=== PATIENT | male | born 1980 | race Caucasian/White ===

== ENCOUNTER 2018-12-10 10:51 | Inpatient (IN) | payer OTHER ==
[2018-12-10 11:13] VITALS: BMI 25.0
--- NOTE | 2018-12-10 11:45 | HP ---
"CIWA Score Nausea/Vomitin-No Nausea/No Vomiting Muscle Tremors: 3 Anxiety: 4-Mod. Anxious/Guarded Agitation: 4-Moderately Restless Paroxysmal Sweats: 3 (Increased facial moisture) Orientation: 0-Oriented Tacttile Disturbances: 0-None Auditory Disturbances: 0-None Visual Disturbances: 0-None Headache: 0-None Present CIWA-Ar Total Score: 14 - Admission Criteria OASAS Guidelines: Admission for Medically Managed Detox: Requires at least one of the followin. CIWA greater than 12 2. Seizures within the past 24 hours 3. Delirium tremens within the past 24 hours 4. Hallucinations within the past 24 hours 5. Acute intervention needed for co occurring medical disorder 6. Acute intervention needed for co occurring psychiatric disorder 7. Severe withdrawal that cannot be handled at a lower level of care (continued vomiting, continued diarrhea, abnormal vital signs) requiring intravenous medication and/or fluids 8. Patient presents the following: CIWA greater than 12 (PRATIBHA 0.224) Admission Criteria Met: Admission criteria met Admission ROS S - [facility] Chief Complaint: Here w/ alcohol withdrawal Allergies/Adverse Reactions: Allergies Allergy/AdvReac Type Severity Reaction Status Date / Time No Known Allergies Allergy Verified 12/10/18 11:06 History of Present Illness: Here for alcohol detox. Patient brought to [facility] for detox after started drinking after discharge from ED Dept @ [facility] (ED admit: 12/09/18 w/head injury, facial contusion, and alcohol intoxication after a fall down stairs. Neg CT scan.) Patient ambivalent about staying. Alcohol use began at age 15. Patient states willing to consider naltrexone upon discharge. No hx opioid use. Nicotine use began at age 14. Denies seizures or blackouts. PMHx Intermittent back pain w/ sciatica, (R) foot pain MHHx: Denies depression. Denies thoughts of harming self or others. Discussed Search Terms: [place], 1980 Search Date: 12/10/2018 11:38:23 AM The Drug Utilization Report below displays all of the controlled substance prescriptions, if any, that your patient has filled in the last twelve months. The information displayed on this report is compiled from pharmacy submissions to the Department, and accurately reflects the information as submitted by the pharmacies. This report was requested by: Hilary Moody | Reference #: [id number] There are no results for the search terms that you entered. Exam Limitations: No Limitations - Ebola screening Have you traveled outside of the country in the last 21 days: No (N) Have you had contact with anyone from an Ebola affected area: No Have you been sick,other than usual withdrawal symptoms: No (No measles exposure ) Do you have a fever: No - Review of Systems Constitutional: Diaphoresis EENT: reports: Other (Black and blue (R) eye r/t recent fall) Respiratory: reports: No Symptoms reported Cardiac: reports: No Symptoms Reported GI: reports: Nausea : reports: No Symptoms Reported Musculoskeletal: reports: Back Pain (Intermiitent back pain w/ sciatica. Denies pain at this time.), Other (Tingling painful sensation bottom of (R) foot x 1 week) Integumentary: reports: Bruising ((R) eye and ear) Neuro: reports: No Symptoms reported Endocrine: reports: No Symptoms Reported Hematology: reports: No Symptoms Reported Psychiatric: reports: Judgement Intact, Orientated x3, Agitated, Anxious Patient History - PPD History Previous Implant?: No (States BCG as a child ) PPD to be Administered?: Yes - Smoking Cessation Smoking history: Current every day smoker Have you smoked in the past 12 months: Yes Aproximately how many cigarettes per day: 40 Hx Chewing Tobacco Use: Yes Initiated information on smoking cessation: Yes 'Breaking Loose' booklet given: 12/10/18 - Substance & Tx. History Hx Alcohol Use: Yes Hx Substance Use: Yes Substance Use Type: Alcohol Hx Substance Use Treatment: No - Substances abused Alcohol Substance route: Oral Frequency: Daily Amount used: 30 beers Age of first use: 15 Date of last use: 12/10/18 Admission Physical Exam S - Vital Signs Vital Signs: Vital Signs - 24 hr 12/10/18 10:54 Temperature 97.3 F L Pulse Rate 88 Respiratory 18 Rate Blood Pressure 141/92 - Physical General Appearance: Yes: Nourished, Moderate Distress, Alcohol on Breath, Tremorous, Irritable, Sweating (Increased facial moisture), Anxious HEENTM: Yes: EOMI, Hearing grossly Normal, Normocephalic, DANILO, Pharynx Normal, Orbits (Red scleral redness w/ injection), Other ((R) Periorbital ecchimosis w/ swelling; (L) cheek swelling) Respiratory: Yes: Lungs Clear, Normal Breath Sounds, No Respiratory Distress Neck: Yes: No masses,lesions,Nodules, Supple Breast: Yes: Breast Exam Deferred Cardiology: Yes: Regular Rhythm, Regular Rate, S1, S2 Abdominal: Yes: Normal Bowel Sounds, Non Tender, Flat, Soft Genitourinary: Yes: Within Normal Limits Back: Yes: Normal Inspection Musculoskeletal: Yes: full range of Motion, Gait Steady Extremities: Yes: Normal Capillary Refill, Normal Range of Motion, Tremors Neurological: Yes: bi analyst II-XII NML intact, Fully Oriented, Alert, Motor Strength 5/5 Integumentary: Yes: Normal Color, Warm, Diaphoresis (Increased facial moisture) Lymphatic: Yes: Within Normal Limits - Diagnostic (1) Alcohol dependence with uncomplicated withdrawal Current Visit: Yes Status: Acute (2) Nicotine dependence, uncomplicated Current Visit: Yes Status: Chronic Qualifiers: Nicotine product type: cigarettes Qualified Code(s): F17.210 - Nicotine dependence, cigarettes, uncomplicated (3) History of back pain Current Visit: No Status: Chronic (4) Plantar fasciitis Current Visit: Yes Status: Acute (5) Traumatic periorbital ecchymosis of left eye Current Visit: Yes Status: Acute Qualifiers: Encounter type: sequela Qualified Code(s): S05.12XS - Contusion of eyeball and orbital tissues, left eye, sequela Comment: Seen in [facility] ED (12/09/18) prior to admission. Dx; Facial Contusion. Neg fx. Neg CT scan Cleared for Admission [facility] - Detox or Rehab [facility] Level of Care: Medically Managed Detox Regimen/Protocol: Librium Breathalyzer - Breathalyzer Breathalyzer: 0.224 Urine Drug Screen - Test Device Lot number: [id number] Expiration date: 07/21/20 - Control Is test valid?: Yes - Results Drug screen NEGATIVE: Yes Inpatient Rehab Admission - Rehab Decision to Admit Inpatient rehab admission?: No"
[2018-12-10] MEDS ORDERED: IBUPROFEN 400 MG TABLET (FP) PO PRN (12:36)
[2018-12-10] MEDS ORDERED: MAG HYDROX/AL HYDROX/SIMETH 30 ML UNIT-DOSE CUP PO PRN (12:36)
[2018-12-10] MEDS ORDERED: chlordiazePOXIDE HCL 25 MG CAPSULE PO ONE (12:36)
[2018-12-10] MEDS ORDERED: NICOTINE POLACRILEX 4 MG GUM BUC PRN (12:36)
[2018-12-10] MEDS ORDERED: chlordiazePOXIDE HCL 25 MG CAPSULE PO PRN (12:36)
[2018-12-10] MEDS ORDERED: guaiFENesin 200 MG/10 ML 10 ML UNIT-DOSE CUPS PO PRN (12:36)
[2018-12-10] MEDS ORDERED: ACETAMINOPHEN 325 MG TABLET (FP) PO PRN ×2 (12:36)
[2018-12-10] MEDS ORDERED: MAGNESIUM CITRATE 300 ML BOTTLE PO PRN (12:36)
[2018-12-10] MEDS ORDERED: MENTHOL/PHENOL 1 EACH UD MM PRN (12:36)
[2018-12-10] MEDS ORDERED: BISMUTH SUBSALICYLATE 524 MG/30 ML UD PO PRN (12:36)
[2018-12-10] MEDS ORDERED: MAGNESIUM HYDROX 2400MG/30ML ORAL SUSPENSION 30 ML CUP PO PRN (12:36)
[2018-12-10] MEDS ORDERED: METHOCARBAMOL 500 MG TABLET PO PRN (12:36)
[2018-12-10] MEDS: NICOTINE 21 MG/24 HOURS TOPICAL PATCH TD SCH (12:47)
[2018-12-10 13:38] LABS: URINE APPEARANCE CLEAR; URINE BILIRUBIN NEGATIVE (NEGATIVE); URINE COLOR YELLOW; URINE GLUCOSE (UA) NEGATIVE (NEGATIVE); URINE KETONE NEGATIVE (NEGATIVE); URINE LEUK ESTERASE NEGATIVE (NEGATIVE); URINE NITRITE NEGATIVE (NEGATIVE); URINE PROTEIN NEGATIVE (NEGATIVE)
[2018-12-10] MEDS: chlordiazePOXIDE HCL 25 MG CAPSULE PO SCH ×2 (17:38→22:26)
[2018-12-10] MEDS: THIAMINE HCL 100 MG TABLET (FP) PO SCH (22:26)
[2018-12-10] MEDS: MELATONIN 5 MG TABLETS PO PRN (22:27)
[2018-12-11] MEDS: chlordiazePOXIDE HCL 25 MG CAPSULE PO SCH ×4 (05:54→22:06)
[2018-12-11] MEDS ORDERED: HYDROCHLOROTHIAZIDE 50 MG TABLET PO SCH (07:15)
[2018-12-11 09:59] LABS: ALBUMIN 3.6 g/dl (3.4-5.0); ALK PHOS 91 U/L (45-117); ANION GAP 9 MMOL/L (8-16); BLOOD UREA NITROGEN 6 mg/dL (7-18); CALCIUM 9.2 mg/dL (8.5-10.1); CHLORIDE 100 mmol/L (98-107); CO2 30 mmol/L (21-32); CREATININE 0.6 mg/dL (0.55-1.3); GLUCOSE,RANDOM 93 mg/dL (74-106); POTASSIUM 3.6 mmol/L (3.5-5.1); SGOT/AST 103 U/L (15-37); SGPT/ALT 100 U/L (13-61); SODIUM 139 mmol/L (136-145); TOT PROT 6.6 g/dl (6.4-8.2)
--- NOTE | 2018-12-11 10:01 | EKG ---
Test Reason : Blood Pressure : / mmHG Vent. Rate : 082 BPM Atrial Rate : 082 BPM P-R Int : 192 ms QRS Dur : 092 ms QT Int : 356 ms P-R-T Axes : 065 081 070 degrees QTc Int : 415 ms NORMAL SINUS RHYTHM NORMAL ECG NO PREVIOUS ECGS AVAILABLE Confirmed by ALBANIA MATT MD ([id number]) on 12/11/2018 10:01:17 AM Referred By: NABIL LYONS Confirmed By:ALBANIA MATT MD
[2018-12-11] MEDS: PRENATAL VITAMINS W/ FOLIC ACID TABLET (FP) PO SCH (10:06)
[2018-12-11] MEDS: NICOTINE 21 MG/24 HOURS TOPICAL PATCH TD SCH (10:06)
[2018-12-11 10:09] LABS: HEMOGLOBIN 16.2 GM/dL (11.7-16.9); MCH 33.3 pg (25.7-33.7); MCHC 34.4 g/dl (32.0-35.9); MEAN CELL VOLUME 96.8 fl (80-96); MEAN PLT VOLUME 8.8 fl (7.5-11.1); PLATELET COUNT 91 K/MM3 (134-434); RBC 4.86 M/mm3 (4.00-5.60); RDW 13.3 % (11.9-15.9); WHITE BLOOD COUNT 3.1 K/mm3 (4.0-10.0)
--- NOTE | 2018-12-11 16:53 | PN ---
[facility] CIWA - CIWA Score Nausea/Vomitin-No Nausea/No Vomiting Muscle Tremors: 3 Anxiety: 3 Agitation: 0-Normal Activity Paroxysmal Sweats: No Perspiration Orientation: 0-Oriented Tacttile Disturbances: 0-None Auditory Disturbances: 1-Very Mild Visual Disturbances: 3-Moderate Sensitivity Headache: 0-None Present CIWA-Ar Total Score: 10 S Progress Note (SOAP) Subjective: Tremors, Anxious, Fatigue. Objective: PATIENT A & O X 3. IN NO ACUTE DISTRESS. PATIENT DENIES CHEST PAIN. 12/11/18 16:50 Vital Signs Temperature 98.0 F 12/11/18 13:34 Pulse Rate 96 H 12/11/18 14:00 Respiratory Rate 20 12/11/18 14:00 Blood Pressure 141/83 12/11/18 13:34 O2 Sat by Pulse Oximetry (%) PATIENT DENIES KNOWN HISTORY OF HTN. Laboratory Tests 12/10/18 12/11/18 12/11/18 12:35 07:45 07:45 WBC 3.1 L RBC 4.86 Hgb 16.2 Hct 47.0 MCV 96.8 H MCH 33.3 MCHC 34.4 RDW 13.3 Plt Count 91 L MPV 8.8 Platelet Comment No clumping noted Sodium 139 Potassium 3.6 Chloride 100 Carbon Dioxide 30 Anion Gap 9 BUN 6 L Creatinine 0.6 Creat Clearance w eGFR 149.99 Random Glucose 93 Calcium 9.2 Total Bilirubin 1.0 AST 103 H ALT 100 H Alkaline Phosphatase 91 Total Protein 6.6 Albumin 3.6 Urine Color Yellow Urine Appearance Clear Urine pH 5.0 Ur Specific [place] 1.010 Urine Protein Negative Urine Glucose (UA) Negative Urine Ketones Negative Urine Blood Negative Urine Nitrite Negative Urine Bilirubin Negative Urine Urobilinogen 1.0 Ur Leukocyte Esterase Negative RPR Titer 12/11/18 07:45 WBC RBC Hgb Hct MCV MCH MCHC RDW Plt Count MPV Platelet Comment Sodium Potassium Chloride Carbon Dioxide Anion Gap BUN Creatinine Creat Clearance w eGFR Random Glucose Calcium Total Bilirubin AST ALT Alkaline Phosphatase Total Protein Albumin Urine Color Urine Appearance Urine pH Ur Specific [place] Urine Protein Urine Glucose (UA) Urine Ketones Urine Blood Urine Nitrite Urine Bilirubin Urine Urobilinogen Ur Leukocyte Esterase RPR Titer Nonreactive LABS NOTED. Assessment: 12/11/18 16:51 WITHDRAWAL SYMPTOMS. THROMBOCYTOPENIA. LEUKOPENIA. ELEVATED LIVER ENZYMES. Plan: CONTINUE DETOX. CONTINUE TO MONITOR BP. PATIENT ADVISED TO GENTLY AND INTERMITTENTLY APPLY ICE (COVERED BY TOWEL) TO AREA OF LEFT ORBITAL BONE FOR SWELLING AND BRUISING OF LEFT ORBIT, AND TO AVOID CLOSE CONTACT WITH EYE ITSELF. PATIENT VERBALIZED UNDERSTANDING OF RECOMMENDATION.
[2018-12-11] MEDS: THIAMINE HCL 100 MG TABLET (FP) PO SCH (22:06)
[2018-12-11] MEDS: MELATONIN 5 MG TABLETS PO PRN (22:06)
[2018-12-12] MEDS: chlordiazePOXIDE HCL 25 MG CAPSULE PO SCH ×2 (05:39→10:11)
[2018-12-12] MEDS: HYDROCHLOROTHIAZIDE 25 MG TABLET (FP) PO SCH (05:41)
[2018-12-12] MEDS: PRENATAL VITAMINS W/ FOLIC ACID TABLET (FP) PO SCH (10:11)
[2018-12-12] MEDS: NICOTINE 21 MG/24 HOURS TOPICAL PATCH TD SCH (10:11)
[2018-12-12 10:13] LABS: SGOT/AST 110 U/L (15-37); SGPT/ALT 121 U/L (13-61)
[2018-12-12] MEDS ORDERED: chlordiazePOXIDE HCL 10 MG CAPSULE PO PRN (17:00)
[2018-12-12] MEDS: chlordiazePOXIDE HCL 10 MG CAPSULE PO SCH ×2 (17:04→22:10)
--- NOTE | 2018-12-12 17:06 | PN ---
S CIWA - CIWA Score Nausea/Vomitin-No Nausea/No Vomiting Muscle Tremors: 3 Anxiety: 2 Agitation: 1-Slight > Activity Paroxysmal Sweats: No Perspiration Orientation: 0-Oriented Tacttile Disturbances: 1-Very Mild Itch/Numbness Auditory Disturbances: 0-None Visual Disturbances: 1-Very Mild Sensitivity Headache: 0-None Present CIWA-Ar Total Score: 8 BHS Progress Note (SOAP) Subjective: Tremors, Anxious (Mild). Objective: PATIENT A & O X 3, OBSERVED AMBULATING ON UNIT UNASSISTED. IN NO ACUTE DISTRESS. 12/12/18 17:02 Vital Signs Temperature 97 F L 12/12/18 13:23 Pulse Rate 87 12/12/18 13:23 Respiratory Rate 18 12/12/18 13:23 Blood Pressure 133/83 12/12/18 13:23 O2 Sat by Pulse Oximetry (%) Laboratory Tests 12/10/18 12/11/18 12/11/18 12:35 07:45 07:45 WBC 3.1 L RBC 4.86 Hgb 16.2 Hct 47.0 MCV 96.8 H MCH 33.3 MCHC 34.4 RDW 13.3 Plt Count 91 L MPV 8.8 Platelet Comment No clumping noted Sodium 139 Potassium 3.6 Chloride 100 Carbon Dioxide 30 Anion Gap 9 BUN 6 L Creatinine 0.6 Creat Clearance w eGFR 149.99 Random Glucose 93 Calcium 9.2 Total Bilirubin 1.0 AST 103 H ALT 100 H Alkaline Phosphatase 91 Total Protein 6.6 Albumin 3.6 Urine Color Yellow Urine Appearance Clear Urine pH 5.0 Ur Specific [place] 1.010 Urine Protein Negative Urine Glucose (UA) Negative Urine Ketones Negative Urine Blood Negative Urine Nitrite Negative Urine Bilirubin Negative Urine Urobilinogen 1.0 Ur Leukocyte Esterase Negative RPR Titer 12/11/18 12/12/18 07:45 07:00 WBC RBC Hgb Hct MCV MCH MCHC RDW Plt Count MPV Platelet Comment Sodium Potassium Chloride Carbon Dioxide Anion Gap BUN Creatinine Creat Clearance w eGFR Random Glucose Calcium Total Bilirubin AST 110 H ALT 121 H Alkaline Phosphatase Total Protein Albumin Urine Color Urine Appearance Urine pH Ur Specific [place] Urine Protein Urine Glucose (UA) Urine Ketones Urine Blood Urine Nitrite Urine Bilirubin Urine Urobilinogen Ur Leukocyte Esterase RPR Titer Nonreactive LABS NOTED. RESULTS OF REPEAT AST AND ALT NOTED. 12/12/18 17:06 Assessment: 12/12/18 17:03 WITHDRAWAL SYMPTOMS. LEUKOPENIA. THROMBOCYTOPENIA. ELEVATED LIVER ENZYMES. 12/12/18 17:04 Plan: CONTINUE DETOX. PATIENT REPORTS THAT HE IS TOLERATING CURRENT WITHDRAWAL / DETOX SYMPTOMS WELL. AT PATIENT'S REQUEST, CURRENT DETOX MEDICATION REGIMEN (LIBRIUM) MODIFIED SO THAT PATIENT MAY BE DISCHARGED TOMORROW, 12/13/2018. PATIENT ADVISED TO FOLLOW-UP WITH CHARGING MANIPULATOR AFTER DISCHARGE FROM DETOX UNIT FOR GENERAL MEDICAL ASSESSMENT AND FOR LOW WBC AND PLATELET LEVELS AND FOR ELEVATED AST AND ALT LEVELS NOTED WHILE ADMITTED FOR DETOX. PATIENT VERBALIZED UNDERSTANDING OF RECOMMENDATION. COPIES OF RESULTS OF ALL LABS DRAWN WHILE ADMITTED FOR DETOX WILL BE GIVEN TO PATIENT AT TIME OF DISCHARGE FROM DETOX UNIT TOMORROW.
[2018-12-12] MEDS: THIAMINE HCL 100 MG TABLET (FP) PO SCH (22:10)
[2018-12-12] MEDS: MELATONIN 5 MG TABLETS PO PRN (22:11)
[2018-12-13] MEDS: chlordiazePOXIDE HCL 10 MG CAPSULE PO SCH (05:29)
[2018-12-13] MEDS: HYDROCHLOROTHIAZIDE 25 MG TABLET (FP) PO SCH (06:24)
[2018-12-13 06:46] VITALS: BP 122/78; PULSE 119; TEMP 96
--- NOTE | 2018-12-13 12:39 | DS ---
[facility] Detox Discharge Summary Admission Date: 12/10/18 Discharge Date: 12/13/18 - History Present History: Alcohol Dependence Additional Comments: 38 years old male admitted on 12/10/18 for alcohol withdrawal stabilization completed detox regimen aftercare [facility] Pertinent Past History: bring in medication list and lab report to aftercare appointment - Physical Exam Results Vital Signs: Vital Signs Temperature 96.0 F L 12/13/18 06:45 Pulse Rate 119 H 12/13/18 06:45 Respiratory Rate 18 12/13/18 06:45 Blood Pressure 122/78 12/13/18 06:45 O2 Sat by Pulse Oximetry (%) Pertinent Admission Physical Exam Findings: alcohol withdrawal sx Laboratory Last Values WBC 3.1 K/mm3 (4.0-10.0) L 12/11/18 07:45 RBC 4.86 M/mm3 (4.00-5.60) 12/11/18 07:45 Hgb 16.2 GM/dL (11.7-16.9) 12/11/18 07:45 Hct 47.0 % (35.4-49) 12/11/18 07:45 MCV 96.8 fl (80-96) H 12/11/18 07:45 MCH 33.3 pg (25.7-33.7) 12/11/18 07:45 MCHC 34.4 g/dl (32.0-35.9) 12/11/18 07:45 RDW 13.3 % (11.9-15.9) 12/11/18 07:45 Plt Count 91 K/MM3 (134-434) L 12/11/18 07:45 MPV 8.8 fl (7.5-11.1) 12/11/18 07:45 Platelet Comment No clumping noted 12/11/18 07:45 Sodium 139 mmol/L (136-145) 12/11/18 07:45 Potassium 3.6 mmol/L (3.5-5.1) 12/11/18 07:45 Chloride 100 mmol/L (98-107) 12/11/18 07:45 Carbon Dioxide 30 mmol/L (21-32) 12/11/18 07:45 Anion Gap 9 MMOL/L (8-16) 12/11/18 07:45 BUN 6 mg/dL (7-18) L 12/11/18 07:45 Creatinine 0.6 mg/dL (0.55-1.3) 12/11/18 07:45 Creat Clearance w eGFR 149.99 (>60) 12/11/18 07:45 Random Glucose 93 mg/dL (74-106) 12/11/18 07:45 Calcium 9.2 mg/dL (8.5-10.1) 12/11/18 07:45 Total Bilirubin 1.0 mg/dL (0.2-1) 12/11/18 07:45 AST 110 U/L (15-37) H 12/12/18 07:00 ALT 121 U/L (13-61) H 12/12/18 07:00 Alkaline Phosphatase 91 U/L (45-117) 12/11/18 07:45 Total Protein 6.6 g/dl (6.4-8.2) 12/11/18 07:45 Albumin 3.6 g/dl (3.4-5.0) 12/11/18 07:45 Urine Color Yellow 12/10/18 12:35 Urine Appearance Clear 12/10/18 12:35 Urine pH 5.0 (5.0-8.0) 12/10/18 12:35 Ur Specific [place] 1.010 (1.010-1.035) 12/10/18 12:35 Urine Protein Negative (NEGATIVE) 12/10/18 12:35 Urine Glucose (UA) Negative (NEGATIVE) 12/10/18 12:35 Urine Ketones Negative (NEGATIVE) 12/10/18 12:35 Urine Blood Negative (NEGATIVE) 12/10/18 12:35 Urine Nitrite Negative (NEGATIVE) 12/10/18 12:35 Urine Bilirubin Negative (NEGATIVE) 12/10/18 12:35 Urine Urobilinogen 1.0 mg/dL (0.2-1.0) 12/10/18 12:35 Ur Leukocyte Esterase Negative (NEGATIVE) 12/10/18 12:35 RPR Titer Nonreactive (NONREACTIVE) 12/11/18 07:45 lab noted patient agrees to bring in lab report to aftercare appointment - Treatment Hospital Course: Detox Protocol Followed, Detoxed Safely, Responded well, Discharged Condition Good, Rehab Referral Accepted Patient has Accepted a Rehab Referral to: [facility] - Medication Discharge Medications: Ambulatory Orders NK [No Known Home Medication] 12/10/18 - Diagnosis (1) Alcohol dependence with uncomplicated withdrawal Status: Acute (2) Nicotine dependence, uncomplicated Status: Acute Qualifiers: Nicotine product type: cigarettes Qualified Code(s): F17.210 - Nicotine dependence, cigarettes, uncomplicated - AMA Did Patient Leave Against Medical Advice: No
[2018-12-13] MEDS ORDERED: chlordiazePOXIDE HCL 10 MG CAPSULE PO SCH (17:00)
== END 2018-12-13 07:16 | disposition home or self-care (01) | DRG 775 ==
LOC: YASAS 10:51 → Y3N 12:06
PROVIDERS: ADMIT Surgery; ATTEND Surgery
PROC: HZ2ZZZZ Detoxification Services for Substance Abuse Treatment (ICD-10-PCS; principal; 2018-12-10)
DX: F10.230 Alcohol dependence with withdrawal, uncomplicated (principal); F17.210 Nicotine dependence, cigarettes, uncomplicated; D69.6 Thrombocytopenia, unspecified; D72.819 Decreased white blood cell count, unspecified; R94.5 Abnormal results of liver function studies; M72.2 Plantar fascial fibromatosis; Z87.39 Personal history of other diseases of the musculoskeletal system and connective tissue
CPT/HCPCS: 36415; 80053; 81003; 84450; 84460; 85027; 86593; 93005; 93010